=== PATIENT | male | born 2000 | race Caucasian/White ===

== ENCOUNTER 2023-06-25 21:59 | Emergency (ER) | payer OTHER ==
[~2023-06-25] VITALS: Ht 188 cm; Wt 96.2 kg
[2023-06-25] MEDS ORDERED: LIDOCAINE HCL 1% 20 ML VIAL ONE (22:34)
[2023-06-25] MEDS ORDERED: CEphaleXIN 500 MG CAPSULE ONE (22:36)
[2023-06-25] MEDS: CEphaleXIN 500 MG CAPSULE PO ONE (22:37)
[2023-06-25] MEDS: LIDOCAINE HCL 1% 20 ML VIAL IJ ONE (22:37)
[2023-06-25] MEDS ORDERED: HYDR-3980 PO (23:34)
[2023-06-25] MEDS ORDERED: CEPH500C2 PO (23:34)
[2023-06-25] MEDS: NEOMY/BACITRA/POLYMYXIN B OINT UD PACKET TP ONE (23:42)
[2023-06-25] MEDS ORDERED: NEOMY/BACITRA/POLYMYXIN B OINT UD PACKET TP ONE (23:43)
[2023-06-25] MEDS ORDERED: HYDROCODONE/APAP 10-325 MG TABLET ONE (23:47)
[2023-06-25] MEDS: HYDROCODONE/APAP 10-325 MG TABLET PO ONE (23:49)
[2023-06-25 23:50] VITALS: BP 120/88; TEMP 98.3; O2SAT 99
== END 2023-06-25 23:51 | disposition home or self-care (01) ==
LOC: ER 22:05
DX: S66.321A Laceration of extensor muscle, fascia and tendon of left index finger at wrist and hand level, initial encounter (principal); Z79.899 Other long term (current) drug therapy; W26.0XXA Contact with knife, initial encounter; Y93.89 Activity, other specified; Y92.89 Other specified places as the place of occurrence of the external cause; Y99.8 Other external cause status
CPT/HCPCS: 99284; 12001; J3490; A4606; A4663

== ENCOUNTER 2024-01-26 22:20 | Emergency (ER) | payer OTHER ==
[~2024-01-26] VITALS: Ht 188 cm; Wt 99.8 kg
[~2024-01-26 22:20] MED LIST: CEPH500C2 PO; HYDR-3980 PO
[2024-01-26] MEDS ORDERED: ACET10DR15 RIGHT EAR (23:11)
[2024-01-26] MEDS ORDERED: MOME17SP BNOSTRILS (23:11)
[2024-01-26 23:25] VITALS: BP 127/70; TEMP 98.2; O2SAT 98
== END 2024-01-26 23:26 | disposition home or self-care (01) ==
LOC: ER 22:23
DX: H65.91 Unspecified nonsuppurative otitis media, right ear (principal); Z79.891 Long term (current) use of opiate analgesic; Z79.899 Other long term (current) drug therapy
CPT/HCPCS: A4606; A4663